=== PATIENT | male | born 1995 | race Caucasian/White ===

== ENCOUNTER 2021-01-24 18:42 | Emergency (ER) | payer BC, OTHER ==
--- NOTE | 2021-01-24 21:54 | EDM.PDOC ---
ED HPI GENERAL MEDICAL PROBLEM - General Chief Complaint: ENT Problem Stated Complaint: FACIAL SWELLING Time Seen by Provider: 01/24/21 21:03 Source of Information: Reports: Patient History Limitations: Reports: No Limitations - History of Present Illness INITIAL COMMENTS - FREE TEXT/NARRATIVE: Patient presents emergency room today secondary to concern about skin edema sensation of pressure in the left temporal side of his face he states that about 1 month ago he was sick had a sore throat viral illness mouth sores he also noted some dental pain as well as left-sided mouth and cheek swelling though symptoms have primarily resolved with the only remaining symptom is what he feels like symptoms swelling or edema to the left upper side of his face as well as this pressure sensation he denies any current symptoms otherwise no fevers chills no nausea vomiting no sore throat discomfort no headache dizziness no visual changes. Patient has not followed up with his primary care provider or family physician as he states he is currently working out of his home area and has not returned since then. PMH/Meds--denies NKDA Tob--1ppd EtOH/drug--denie --has not had COVID infection, nor has he received immunization - Related Data Allergies Allergy/AdvReac Type Severity Reaction Status Date / Time No Known Allergies Allergy Verified 01/24/21 19:50 Home Meds: Home Meds NK [No Known Home Meds] 01/24/21 [History] Past Medical History - Past Health History Medical/Surgical History: Denies Medical/Surgical History Social & Family History - Tobacco Use Tobacco Use Status *Q: Heavy Tobacco User Years of Tobacco use: 8 Packs/Tins Daily: 1 - Caffeine Use Caffeine Use: Reports: Energy Drinks - Recreational Drug Use Recreational Drug Use: No ED ROS GENERAL - Review of Systems Review Of Systems: Comprehensive ROS is negative, except as noted in HPI. ED EXAM, GENERAL - Physical Exam Exam: See Below Exam Limited By: No Limitations General Appearance: Alert, WD/WN, No Apparent Distress Eye Exam: Bilateral Eye: EOMI, Normal Inspection, PERRL Ears: Normal External Exam, Normal Canal, Hearing Grossly Normal, Normal TMs Nose: Normal Inspection Throat/Mouth: Normal Inspection, Normal Lips, Normal Teeth, Normal Gums, Normal Oropharynx, Normal Voice, No Airway Compromise Head: Atraumatic, Normocephalic, Other (i do not appreaciate any facial edema/erythema or swelling as he describes or indicates by pointing to area) Neck: Normal Inspection, Supple, Non-Tender, Full Range of Motion Respiratory/Chest: No Respiratory Distress, Lungs Clear, Normal Breath Sounds Cardiovascular: Normal Peripheral Pulses, Regular Rate, Rhythm, No Edema, No Murmur Peripheral Pulses: 2+: Radial (L), Radial (R) (Male) Exam: Deferred Rectal (Males) Exam: Deferred Extremities: Normal Range of Motion, Normal Capillary Refill Neurological: Alert, Oriented, Normal Cognition, No Motor/Sensory Deficits Psychiatric: Normal Affect, Normal Mood Skin Exam: Warm, Dry, Intact, Normal Color, No Rash Course - Vital Signs Last Recorded V/S: Last Vital Signs Temp 97.8 F 01/24/21 19:49 Pulse 79 01/24/21 19:49 Resp 16 01/24/21 19:49 BP 123/69 01/24/21 19:49 Pulse Ox 98 01/24/21 19:49 Departure - Departure Time of Disposition: 21:52 Disposition: Home, Self-Care 01 Condition: Good Clinical Impression: Skin complaints - Discharge Information *PRESCRIPTION DRUG MONITORING PROGRAM REVIEWED*: Not Applicable *COPY OF PRESCRIPTION DRUG MONITORING REPORT IN PATIENT STEFAN: Not Applicable Instructions: Lymphedema Referrals: PCP,None [Primary Care Provider] - Forms: ED Department Discharge Additional Instructions: If continued symptoms of concern over the next 1-2 weeks or any worsening symptoms return to the ER or follow up with your family physician Sepsis Event Note (ED) - Evaluation Sepsis Screening Result: No Definite Risk - Focused Exam Vital Signs: Vital Signs Temp Pulse Resp BP Pulse Ox 01/24/21 19:49 97.8 F 79 16 123/69 98 01/24/21 19:42 97.8 F 79 16 123/69 98
== END 2021-01-24 22:04 | disposition home or self-care (01) ==
LOC: JP.ED 18:42
DX: R22.0 Localized swelling, mass and lump, head (principal); Z72.0 Tobacco use
CPT/HCPCS: 99283